=== PATIENT | female | born 1960 | race African-American/Black ===

== ENCOUNTER 2017-01-17 09:38 | Day surgery (SDC) | payer BC ==
[2017-01-10 09:50] LABS: HEMOGLOBIN 12.3 g/dL (12.0-16.0)
[2017-01-10 09:51] LABS: HEMATOCRIT 36.3 % (36.0-48.0)
--- NOTE | ~2017-01-17 | OP ---
Record Of Operation [facility] [address] [place]. [address] NAME: KAYLA CHILEL : 58 STATUS : REG [facility] PAT#: [id number] AGE: 56 ADM/REG DATE : 01/17/17 MR#: [id number] REPORT SERV DATE: 01/17/17 DICTATED BY: NELY DELEON DATE: 01/17/17 REPORT STATUS : Draft TRANSCRIBED BY: MODL DATE: 01/17/17 DATE OF PROCEDURE: 01/17/2017 PREOPERATIVE DIAGNOSIS: Left dorsal wrist recurrent ganglion cyst. POSTOPERATIVE DIAGNOSIS: Left dorsal wrist recurrent ganglion cyst. PROCEDURE: Excision of above cyst. SURGEON: Nely Deleon M.D. ANESTHESIA: General. ESTIMATED BLOOD LOSS: 1 mL. COMPLICATIONS: None. DISPOSITION: The patient tolerated the procedure well and was brought to recovery room in stable condition. PROCEDURE NOTE: The patient was brought to the operating room and placed in the supine position. After general anesthesia was administered, a pneumatic tourniquet was placed around the left proximal arm and left upper extremity distal to the tourniquet was prepped and draped in the usual sterile manner. A surgical timeout was performed. All were in agreement. An Esmarch was then used to exsanguinate the extremity and tourniquet was inflated. A 15 blade scalpel was used to make a 3 cm oblique incision overlying the dorsal ganglion cyst in line with Andrae's line. Blunt dissection was carried out. Immediately the ganglion cyst was identified. It was a thick-wall lesion with a clear/yellowish gelatin gelatinous material inside the cyst, and the cyst was carefully dissected away from the surrounding structures. Care was taken to protect any extensor tendons or any other arteries and nerves in the region. The base was reached at the dorsal wrist capsule and the capsule was then identified and the cyst was identified. The cyst was then excised off the dorsal capsule and this area was cauterized with electrocautery to promote scarring. The area was also reinforced with a 3-0 Vicryl suture to imbricate the redundant capsule. Afterwards, the wound was irrigated and skin was closed with deep and running Monocryl suture. Steri-Strips, sterile dressing, and a volar splint were applied. Tourniquet was released. The patient was taken out of general anesthesia and brought to recovery room in stable condition. LIVE/OMEGA Nely Record Of Operation [place] [id number] [address]. [facility] [place]. [address] NAME: KAYLA CHILEL : 58 STATUS : REG [facility] PAT#: [id number] AGE: 56 ADM/REG DATE : 01/17/17 MR#: [id number] REPORT SERV DATE: 01/17/17 DICTATED BY: NELY DELEON DATE: 01/17/17 REPORT STATUS : Draft TRANSCRIBED BY: MODL DATE: 01/17/17 Grayson Deleon / [id number] CC: Grayson Mackay M.D.
[~2017-01-17 09:38] MED LIST: ALLEGRA180 PO; ALTACE10 MG PO; C5 PO; COZ50 PO; FISH-EPA1000 MG PO; KDUR10 PO; MICRO-K10 MEQ PO; MOBIC15 MG PO; MULTIPLE VIT PO; NEXIUM40 PO; PCET PO; PEPCID40 MG PO; SINGULAIR1 PO; TENORETIC1 TAB PO; VITAMIN D1000 UNI1 PO
== END 2017-01-17 23:59 | disposition home or self-care (01) ==
LOC: MSC 09:38
PROVIDERS: Orthopaedic Surgery Hand Surgery
PROC: 0LB60ZZ Excision of Left Lower Arm and Wrist Tendon, Open Approach (ICD-10-PCS; principal; 2017-01-17 11:15)
DX: M67.432 Ganglion, left wrist (principal); I10 Essential (primary) hypertension; K21.9 Gastro-esophageal reflux disease without esophagitis; J30.2 Other seasonal allergic rhinitis; F17.210 Nicotine dependence, cigarettes, uncomplicated; M19.90 Unspecified osteoarthritis, unspecified site; M54.30 Sciatica, unspecified side; Z88.0 Allergy status to penicillin; Z88.2 Allergy status to sulfonamides; Z88.5 Allergy status to narcotic agent; Z90.710 Acquired absence of both cervix and uterus; Z79.899 Other long term (current) drug therapy; Z98.890 Other specified postprocedural states
CPT/HCPCS: 85014; 85018; 88304; 93005; A9270-GY; J0690; J2250; J2405; J3010